=== PATIENT | female | born 1950 | race African-American/Black ===

== ENCOUNTER 2017-12-18 17:37 | Emergency (ER) | payer MEDICARE, OTHER ==
[~2017-12-18] VITALS: Ht 177.8 cm; Wt 95.0 kg
[~2017-12-18 17:37] MED LIST: AMLO10TA4 PO; AMLO5TAB4 PO; DILT60TA27 PO; HYDR-3307 PO; INSU100V8 SQ; LEVO75TA PO; LISI-466 PO; METF500T17 PO
[2017-12-18] MEDS ORDERED: SODIUM CHLORIDE FLUSH 10ML SYR IVF ONE (18:00)
[2017-12-18] MEDS ORDERED: ASPIRIN 81 MG TABLET CHEW PO ONE (18:00)
[2017-12-18] MEDS ORDERED: MAALOX/HYOSCYAMINE/LIDOCAINE 45 ML BTL PO ONE ×2 (18:00→21:30)
[2017-12-18 19:06] LABS: ALANINE AMINOTRANSFERASE 28 U/L (12-78); ALBUMIN 3.7 g/dL (3.4-5.0); ANION GAP 12 mmol/L (5-15); CALCIUM 8.8 mg/dL (8.5-10.1); CHLORIDE 109 mmol/L (98-107); CREATININE 1.22 mg/dL (0.55-1.02)
[2017-12-18 19:10] LABS: ALKALINE PHOSPHATASE 85 U/L (45-117); BASOPHILS # (AUTO) 0.03 x10^3/uL (0-0.1); BASOPHILS % (AUTO) 0 % (0-1); BILIRUBIN,TOTAL 0.5 mg/dL (0.2-1.0); EOSINOPHILS # (AUTO) 0.09 x10^3/uL (0-0.4); EOSINOPHILS % (AUTO) 2 % (1-7); LYMPHOCYTES # (AUTO) 1.68 x10^3/uL (1-3.4); LYMPHOCYTES % (AUTO) 29 % (22-44); MD NO; MEAN CORPUSCULAR HEMOGLOBIN 30.4 pg (27.0-34.8); MEAN CORPUSCULAR HGB CONC 33.3 g/dL (32.4-35.8); MEAN CORPUSCULAR VOLUME 91.2 fL (80-100); MEAN PLATELET VOLUME 8.2 fL (7.4-10.4); MONOCYTES # (AUTO) 0.43 x10^3/uL (0.2-0.8); MONOCYTES % (AUTO) 7 % (2-9); NEUTROPHILS # (AUTO) 3.65 x10^3/uL (1.8-6.8); NEUTROPHILS % (AUTO) 62 % (42-75); PLATELET COUNT 227 x10^3/uL (130-400); RED BLOOD COUNT 4.72 x10^6/uL (3.82-5.3); RED CELL DISTRIBUTION WIDTH 14.9 % (9.6-15.2); TOTAL PROTEIN 8.2 g/dL (6.4-8.2); TROPONIN I < 0.015 ng/mL (0.000-0.045)
[2017-12-18] MEDS ORDERED: MAALOX/HYOSCYAMINE/LIDOCAINE 45 ML BTL ONE (20:39)
[2017-12-18] MEDS ORDERED: ASPIRIN 81 MG TABLET CHEW ONE (20:39)
[2017-12-18 22:49] VITALS: BP 103/50
== END 2017-12-18 23:21 | disposition home or self-care (01) ==
LOC: ED 23:14
DX: K29.00 Acute gastritis without bleeding (principal); I31.3 Pericardial effusion (noninflammatory); R53.83 Other fatigue; R42 Dizziness and giddiness; I10 Essential (primary) hypertension; E11.9 Type 2 diabetes mellitus without complications; G89.29 Other chronic pain; E03.9 Hypothyroidism, unspecified; Z88.0 Allergy status to penicillin
CPT/HCPCS: 36415; 71045; 74176; 80053; 83690; 83880; 84484; 85025; 93005; 99285

== ENCOUNTER 2018-03-06 19:04 | Emergency (ER) | payer MEDICARE, OTHER ==
[~2018-03-06] VITALS: Ht 177.8 cm; Wt 102.3 kg
[2018-03-06] MEDS ORDERED: LORazepam 2 MG/ML, 1ML ONE (19:19)
[2018-03-06] MEDS ORDERED: LORazepam 2 MG/ML, 1ML IVPush ONE (19:30)
[2018-03-06] MEDS ORDERED: SODIUM CHLORIDE FLUSH 10ML SYR IVF ONE (19:30)
[2018-03-06 19:40] LABS: BASOPHILS # (AUTO) 0.01 x10^3/uL (0-0.1); BASOPHILS % (AUTO) 0 % (0-1); EOSINOPHILS # (AUTO) 0.06 x10^3/uL (0-0.4); EOSINOPHILS % (AUTO) 1 % (1-7); LYMPHOCYTES # (AUTO) 1.78 x10^3/uL (1-3.4); LYMPHOCYTES % (AUTO) 37 % (22-44); MD NO; MEAN CORPUSCULAR HGB CONC 33.1 g/dL (32.4-35.8); MEAN CORPUSCULAR VOLUME 90.9 fL (80-100); MEAN PLATELET VOLUME 8.4 fL (7.4-10.4); MONOCYTES # (AUTO) 0.57 x10^3/uL (0.2-0.8); MONOCYTES % (AUTO) 12 % (2-9); NEUTROPHILS # (AUTO) 2.34 x10^3/uL (1.8-6.8); NEUTROPHILS % (AUTO) 49 % (42-75); PLATELET COUNT 199 x10^3/uL (130-400); RED BLOOD COUNT 4.57 x10^6/uL (3.82-5.3); RED CELL DISTRIBUTION WIDTH 15.3 % (9.6-15.2)
[2018-03-06 19:54] LABS: ALANINE AMINOTRANSFERASE 32 U/L (12-78); ALBUMIN 3.6 g/dL (3.4-5.0); ANION GAP 8 mmol/L (5-15); CALCIUM 8.4 mg/dL (8.5-10.1); CHLORIDE 111 mmol/L (98-107)
[2018-03-06 19:59] LABS: ALKALINE PHOSPHATASE 91 U/L (45-117); BILIRUBIN,TOTAL 0.7 mg/dL (0.2-1.0); CREATININE 1.58 mg/dL (0.55-1.02); TOTAL PROTEIN 7.9 g/dL (6.4-8.2); TROPONIN I < 0.015 ng/mL (0.000-0.045)
--- NOTE | 2018-03-06 21:21 | NUR ---
REPEAT CHEST XRAY AT THIS TIME.
[2018-03-06 21:50] VITALS: BP 131/74
== END 2018-03-06 21:52 | disposition home or self-care (01) ==
LOC: ED 19:37
DX: R00.2 Palpitations (principal); Z90.710 Acquired absence of both cervix and uterus; E11.9 Type 2 diabetes mellitus without complications; E03.9 Hypothyroidism, unspecified; I10 Essential (primary) hypertension; K21.9 Gastro-esophageal reflux disease without esophagitis; M54.9 Dorsalgia, unspecified; G89.29 Other chronic pain; M19.90 Unspecified osteoarthritis, unspecified site
CPT/HCPCS: 36415; 71045; 80053; 84484; 85025; 93005; 96374; 99284; J2060

== ENCOUNTER 2019-11-17 15:04 | Inpatient (IN) | payer MEDICARE, OTHER ==
[~2019-11-17] VITALS: Ht 177.8 cm; Wt 101.7 kg
[~2019-11-17 15:04] MED LIST changes: +AMLO10TA8 PO; +CARI350T14 PO; +DIPH25CA61 PO; +FAMO20TA7 PO; +HYDR-3246 PO; -HYDR-3307 PO; +HYDR-3653 PO; +NABU500T PO; +ONDA8TAB18 PO; +OXYC5TAB2 PO; +PRED20TA PO; +PREG100C PO
--- NOTE | 2019-11-17 15:15 | NUR ---
THIS IS A 69YO F BIB EMS W/ C/O PRODUCTIVE COUGH SINCE THURSDAY. PER EMS PT WAS 88% RA ON ARRIVAL. PT ON 2L NC W/ DESIRED EFFECT. NO OTHER INTERVENTIONS G[employer]ENT. PT REPORTS NEW N/V TODAY. PT TACHYCARDIC, FEBRILE AND TACHYPNEIC. PT RESTING ON [employer] W/ CALL LIGHT IN REACH, CONNECTED TO ALL MONITORING. LINDA.
[2019-11-17] MEDS ORDERED: ACETAMINOPHEN 500 MG TABLET ONE (15:29)
[2019-11-17] MEDS ORDERED: ACETAMINOPHEN 500 MG TABLET PO ONE (15:30)
[2019-11-17] MEDS ORDERED: SODIUM CHLORIDE 0.9% 1,000ML IVBOLUS ONE (15:30)
--- NOTE | 2019-11-17 15:54 | NUR ---
PTS DAUGHTER UPDATED W/ CURRENT POC. OK TO UPDATE HER PER PT.
--- NOTE | 2019-11-17 15:56 | NUR ---
UNABLE TO START PIV AFTER 2 ATTEMPTS. WILL CONSULT FOR US IV START.
[2019-11-17 15:59] LABS: BASOPHILS % (AUTO) 0 % (0-1); EOSINOPHILS % (AUTO) 0 % (1-7); LYMPHOCYTES % (AUTO) 8 % (22-44); MEAN CORPUSCULAR HEMOGLOBIN 29.1 pg (27.0-34.8); MEAN CORPUSCULAR HGB CONC 33.2 g/dL (32.4-35.8); MEAN PLATELET VOLUME 8.5 fL (7.4-10.4); MONOCYTES % (AUTO) 5 % (2-9); NEUTROPHILS % (AUTO) 86 % (42-75); PLATELET COUNT 141 x10^3/uL (130-400); RED BLOOD COUNT 4.05 x10^6/uL (3.82-5.3); RED CELL DISTRIBUTION WIDTH 14.6 % (9.6-15.2)
--- NOTE | 2019-11-17 16:00 | NUR ---
MAILE CAMACHO IN ROOM W/ US.
[2019-11-17 16:02] LABS: MD NO
[2019-11-17 16:07] LABS: ALBUMIN 3.1 g/dL (3.4-5.0); CALCIUM 8.3 mg/dL (8.5-10.1); CHLORIDE 102 mmol/L (98-107); CREATININE 1.35 mg/dL (0.55-1.02)
--- NOTE | 2019-11-17 16:08 | NUR ---
TASK RN: PIV PLACED VIA ULTRASOUND BY THIS RN. SITE CLEAN DRY AND INTACT, NO SIGNS OF INFILTRATION. IVF RUNNING.
--- NOTE | 2019-11-17 16:19 | NUR ---
TELEPHONE CALL TO LAB CONFIRMING BLOOD CULTURE [id number].
[2019-11-17] MEDS ORDERED: CEFTRIAXONE PMX 1GM/50ML 50 ML ONE (16:21)
[2019-11-17 16:22] LABS: ANION GAP 10 mmol/L (5-15)
[2019-11-17] MEDS ORDERED: POTASSIUM CHLORIDE 40 MEQ in SODIUM CHLORIDE 0.9% 500 ML IV ONE (16:30)
[2019-11-17] MEDS ORDERED: DOXYCYCLINE 100 MG in DEXTROSE 5% 250 ML IV ONE (16:30)
[2019-11-17] MEDS ORDERED: CEFTRIAXONE PMX 1GM/50ML 50 ML IVPB ONE (16:30)
--- NOTE | 2019-11-17 16:34 | NUR ---
MED CHARLES FROM PHARMACY.
--- NOTE | 2019-11-17 16:50 | NUR ---
STRAIGHT CATH URINE OBTAINED W/O INCIDENT.
--- NOTE | 2019-11-17 16:55 | NUR ---
VIBRAMYCIN AND NS W/ K+ STARTED. IV COMPATABILITY CONFIRMED W/ MICROMEDEX.
--- NOTE | 2019-11-17 17:01 | NUR ---
PT UPDATED ON POC FOR ADMIT.
[2019-11-17 17:05] LABS: D-DIMER (DIC) 0.64 ug/mlFEU (0.00-0.52); PROTIME 10.7 Seconds (9.6-11.5)
[2019-11-17 17:18] LABS: MICROSCOPIC INDICATED
--- NOTE | 2019-11-17 17:25 | NUR ---
ADMITTING PROVIDER AT BEDSIDE.
--- NOTE | 2019-11-17 17:36 | NUR ---
REPORT GIVEN TO RASHAD CAMACHO. PT IS READY FOR TRANSPORT AT THIS TIME W/ IVF INFUSING APPROPRIATELY.
[2019-11-17] MEDS ORDERED: OXYcodone IR 5MG TABLET PO PRN (18:00)
[2019-11-17] MEDS ORDERED: LABETALOL 5MG/ML, 20ML IVPush PRN (18:00)
[2019-11-17] MEDS ORDERED: ONDANSETRON 2MG/ML, 2ML IVPush PRN (18:00)
[2019-11-17] MEDS ORDERED: POTASSIUM CHLORIDE 20 MEQ TAB.ER.PRT PO ONE ×2 (18:00→21:00)
[2019-11-17 18:24] VITALS: BP 144/66
[2019-11-17] MEDS: ENOXAPARIN 40 MG/0.4 ML SQ SCH (19:21)
[2019-11-17] MEDS: ASCORBIC ACID 500 MG TABLET PO SCH ×2 (19:21→21:41)
[2019-11-17 20:00] VITALS: BP 150/68
[2019-11-17] MEDS ORDERED: DILTIAZEM 30 MG TABLET ONE (20:34)
[2019-11-17] MEDS ORDERED: DILTIAZEM 60 MG TABLET PO SCH (21:00)
[2019-11-17] MEDS: PREGABALIN 100 MG CAPSULE PO SCH (21:38)
[2019-11-17] MEDS: INSULIN GLARGINE 100 UNITS/ML, PEN SQ-INSULIN SCH (21:39)
[2019-11-17] MEDS: SODIUM CHLORIDE 0.9% 1,000 ML IV SCH (21:40)
[2019-11-18 00:08] VITALS: BP 128/67
[2019-11-18] MEDS: GUAIFENESIN/DM 100-10MG, 5ML UDC PO PRN ×3 (02:16→18:04)
[2019-11-18 05:30] LABS: BASOPHILS # (AUTO) 0.02 x10^3/uL (0-0.1); BASOPHILS % (AUTO) 0 % (0-1); EOSINOPHILS % (AUTO) 0 % (1-7); LYMPHOCYTES # (AUTO) 1.05 x10^3/uL (1-3.4); LYMPHOCYTES % (AUTO) 18 % (22-44); MD NO; MEAN CORPUSCULAR HEMOGLOBIN 29.2 pg (27.0-34.8); MEAN CORPUSCULAR HGB CONC 32.3 g/dL (32.4-35.8); MEAN PLATELET VOLUME 8.6 fL (7.4-10.4); MONOCYTES # (AUTO) 0.39 x10^3/uL (0.2-0.8); MONOCYTES % (AUTO) 7 % (2-9); NEUTROPHILS # (AUTO) 4.32 x10^3/uL (1.8-6.8); NEUTROPHILS % (AUTO) 75 % (42-75); PLATELET COUNT 153 x10^3/uL (130-400); RED BLOOD COUNT 3.83 x10^6/uL (3.82-5.3); RED CELL DISTRIBUTION WIDTH 15.2 % (9.6-15.2)
[2019-11-18 05:33] LABS: ANION GAP 7 mmol/L (5-15); CALCIUM 8.3 mg/dL (8.5-10.1); CHLORIDE 110 mmol/L (98-107)
[2019-11-18] MEDS: LEVOTHYROXINE 75 MCG TABLET PO SCH (05:34)
[2019-11-18 05:45] LABS: CREATININE 0.87 mg/dL (0.55-1.02)
[2019-11-18 06:58] VITALS: BP 145/73
[2019-11-18] MEDS ORDERED: DILTIAZEM 60 MG TABLET ONE (08:07)
[2019-11-18] MEDS: DILTIAZEM 120 MG TABLET PO SCH ×2 (08:16→20:37)
[2019-11-18] MEDS: DEXAMETHASONE 4 MG/ML, 1ML IVPush SCH (08:16)
[2019-11-18] MEDS: ASCORBIC ACID 500 MG TABLET PO SCH ×3 (08:16→20:37)
[2019-11-18] MEDS: ZINC SULFATE 220 MG CAPSULE PO SCH (08:17)
[2019-11-18] MEDS: AMLODIPINE 10 MG TAB PO SCH (08:17)
[2019-11-18] MEDS: PREGABALIN 100 MG CAPSULE PO SCH ×2 (08:17→20:37)
[2019-11-18] MEDS: SENNA/DOCUSATE TABLET PO SCH (08:17)
[2019-11-18] MEDS: AZITHROMYCIN 250 MG TABLET PO SCH (08:17)
[2019-11-18] MEDS: SODIUM CHLORIDE 0.9% 1,000 ML IV SCH ×2 (08:18→23:26)
[2019-11-18] MEDS: CHOLECALCIFEROL 5,000u TAB PO SCH (08:37)
[2019-11-18 12:10] VITALS: BP 105/52
[2019-11-18] MEDS: CEFTRIAXONE PMX 1GM/50ML 50 ML IV SCH (16:42)
[2019-11-18] MEDS: ACETAMINOPHEN 325 MG TABLET PO PRN (16:42)
[2019-11-18] MEDS: ENOXAPARIN 40 MG/0.4 ML SQ SCH (18:04)
[2019-11-18 18:33] VITALS: BP 132/73
[2019-11-18] MEDS: INSULIN GLARGINE 100 UNITS/ML, PEN SQ-INSULIN SCH (20:36)
[2019-11-19 01:24] VITALS: BP 157/76
[2019-11-19] MEDS: GUAIFENESIN/DM 100-10MG, 5ML UDC PO PRN ×3 (01:42→18:28)
[2019-11-19 04:24] LABS: ANION GAP 5 mmol/L (5-15); CALCIUM 9.1 mg/dL (8.5-10.1); CHLORIDE 108 mmol/L (98-107)
[2019-11-19 04:25] LABS: CREATININE 0.79 mg/dL (0.55-1.02)
[2019-11-19 04:27] LABS: BASOPHILS # (AUTO) 0.01 x10^3/uL (0-0.1); BASOPHILS % (AUTO) 0 % (0-1); EOSINOPHILS % (AUTO) 0 % (1-7); LYMPHOCYTES # (AUTO) 1.08 x10^3/uL (1-3.4); LYMPHOCYTES % (AUTO) 15 % (22-44); MD NO; MEAN CORPUSCULAR HEMOGLOBIN 29.1 pg (27.0-34.8); MEAN CORPUSCULAR HGB CONC 32.2 g/dL (32.4-35.8); MEAN PLATELET VOLUME 8.9 fL (7.4-10.4); MONOCYTES # (AUTO) 0.58 x10^3/uL (0.2-0.8); MONOCYTES % (AUTO) 8 % (2-9); NEUTROPHILS # (AUTO) 5.58 x10^3/uL (1.8-6.8); NEUTROPHILS % (AUTO) 77 % (42-75); PLATELET COUNT 177 x10^3/uL (130-400); RED BLOOD COUNT 4.09 x10^6/uL (3.82-5.3); RED CELL DISTRIBUTION WIDTH 15.6 % (9.6-15.2)
[2019-11-19] MEDS: LEVOTHYROXINE 75 MCG TABLET PO SCH (05:04)
[2019-11-19 07:04] VITALS: BP 135/79
[2019-11-19] MEDS: DILTIAZEM 120 MG TABLET PO SCH ×2 (07:56→20:29)
[2019-11-19] MEDS: AZITHROMYCIN 250 MG TABLET PO SCH (07:56)
[2019-11-19] MEDS: DEXAMETHASONE 4 MG/ML, 1ML IVPush SCH (07:56)
[2019-11-19] MEDS: ACETAMINOPHEN 325 MG TABLET PO PRN ×3 (07:57→20:30)
[2019-11-19] MEDS: AMLODIPINE 10 MG TAB PO SCH (07:57)
[2019-11-19] MEDS: SENNA/DOCUSATE TABLET PO SCH (07:57)
[2019-11-19] MEDS: ZINC SULFATE 220 MG CAPSULE PO SCH (07:57)
[2019-11-19] MEDS: ASCORBIC ACID 500 MG TABLET PO SCH ×3 (07:57→20:29)
[2019-11-19] MEDS: CHOLECALCIFEROL 5,000u TAB PO SCH (07:57)
[2019-11-19] MEDS: PREGABALIN 100 MG CAPSULE PO SCH ×2 (07:57→20:29)
[2019-11-19] MEDS: SODIUM CHLORIDE 0.9% 1,000 ML IV SCH (13:00)
[2019-11-19 14:08] VITALS: BP 109/64
[2019-11-19] MEDS: BENZONATATE 100 MG CAPSULE PO PRN ×2 (14:23→20:30)
[2019-11-19] MEDS: CEFTRIAXONE PMX 1GM/50ML 50 ML IV SCH (17:04)
[2019-11-19] MEDS: ENOXAPARIN 40 MG/0.4 ML SQ SCH (17:04)
[2019-11-19 18:43] VITALS: BP 146/75
[2019-11-19] MEDS: INSULIN GLARGINE 100 UNITS/ML, PEN SQ-INSULIN SCH (20:29)
[2019-11-20 00:40] VITALS: BP 123/62
[2019-11-20] MEDS: ACETAMINOPHEN 325 MG TABLET PO PRN (05:10)
[2019-11-20] MEDS: LEVOTHYROXINE 75 MCG TABLET PO SCH (05:10)
[2019-11-20] MEDS: BENZONATATE 100 MG CAPSULE PO PRN ×2 (05:10→16:23)
[2019-11-20 06:42] VITALS: BP 132/84
[2019-11-20] MEDS: INSULIN LISPRO 100 UNITS/ML, PEN SQ-INSULIN SCH ×4 (07:00→21:07)
[2019-11-20] MEDS ORDERED: DILTIAZEM 30 MG TABLET ONE (07:53)
[2019-11-20] MEDS: AMLODIPINE 10 MG TAB PO SCH (08:07)
[2019-11-20] MEDS: ZINC SULFATE 220 MG CAPSULE PO SCH (08:07)
[2019-11-20] MEDS: DILTIAZEM 120 MG TABLET PO SCH ×2 (08:07→21:06)
[2019-11-20] MEDS: PREGABALIN 100 MG CAPSULE PO SCH ×2 (08:08→21:06)
[2019-11-20] MEDS: ASCORBIC ACID 500 MG TABLET PO SCH ×3 (08:08→21:06)
[2019-11-20] MEDS: CHOLECALCIFEROL 5,000u TAB PO SCH (08:08)
[2019-11-20] MEDS: DEXAMETHASONE 4 MG/ML, 1ML IVPush SCH (08:09)
[2019-11-20] MEDS: SODIUM CHLORIDE 0.9% 1,000 ML IV SCH ×2 (08:09→21:24)
[2019-11-20] MEDS: SENNA/DOCUSATE TABLET PO SCH (08:13)
[2019-11-20 12:12] VITALS: BP 128/76
[2019-11-20] MEDS: CEFTRIAXONE PMX 1GM/50ML 50 ML IV SCH (16:23)
[2019-11-20] MEDS: ENOXAPARIN 40 MG/0.4 ML SQ SCH (16:24)
[2019-11-20 19:50] VITALS: BP 141/76
[2019-11-20] MEDS ORDERED: INSULIN GLARGINE 100 UNITS/ML, PEN SQ-INSULIN SCH (21:00)
[2019-11-20] MEDS: INSULIN GLARGINE 100 UNITS/ML, PEN SQ-INSULIN SCH (21:07)
[2019-11-20] MEDS: GUAIFENESIN/DM 100-10MG, 5ML UDC PO PRN (21:23)
[2019-11-21 01:56] VITALS: BP 145/78
[2019-11-21] MEDS: BENZONATATE 100 MG CAPSULE PO PRN ×2 (01:56→21:13)
[2019-11-21] MEDS: LEVOTHYROXINE 75 MCG TABLET PO SCH (05:35)
[2019-11-21 05:55] LABS: BASOPHILS % (AUTO) 0 % (0-1); EOSINOPHILS % (AUTO) 0 % (1-7); LYMPHOCYTES % (AUTO) 12 % (22-44); MEAN CORPUSCULAR HGB CONC 32.7 g/dL (32.4-35.8); MEAN PLATELET VOLUME 8.3 fL (7.4-10.4); MONOCYTES % (AUTO) 7 % (2-9); NEUTROPHILS % (AUTO) 81 % (42-75); PLATELET COUNT 251 x10^3/uL (130-400); RED BLOOD COUNT 4.15 x10^6/uL (3.82-5.3); RED CELL DISTRIBUTION WIDTH 14.8 % (9.6-15.2)
[2019-11-21 05:57] LABS: CHLORIDE 107 mmol/L (98-107)
[2019-11-21 06:06] LABS: ALANINE AMINOTRANSFERASE 55 U/L (12-78); ALBUMIN 2.7 g/dL (3.4-5.0); ALKALINE PHOSPHATASE 80 U/L (45-117); ANION GAP 6 mmol/L (5-15); BILIRUBIN,TOTAL 0.4 mg/dL (0.2-1.0); CALCIUM 8.7 mg/dL (8.5-10.1); CREATININE 0.81 mg/dL (0.55-1.02); TOTAL PROTEIN 7.2 g/dL (6.4-8.2)
[2019-11-21 06:18] LABS: MD NO
[2019-11-21 06:21] VITALS: BP 127/73
[2019-11-21] MEDS ORDERED: POTASSIUM CHLORIDE 40 MEQ in SODIUM CHLORIDE 0.9% 500 ML IV ONE (07:00)
[2019-11-21] MEDS: CHOLECALCIFEROL 5,000u TAB PO SCH (08:02)
[2019-11-21] MEDS: DILTIAZEM 120 MG TABLET PO SCH ×2 (08:02→21:13)
[2019-11-21] MEDS: ZINC SULFATE 220 MG CAPSULE PO SCH (08:02)
[2019-11-21] MEDS: AMLODIPINE 10 MG TAB PO SCH (08:02)
[2019-11-21] MEDS: ASCORBIC ACID 500 MG TABLET PO SCH ×3 (08:02→21:13)
[2019-11-21] MEDS: PREGABALIN 100 MG CAPSULE PO SCH ×2 (08:02→21:13)
[2019-11-21] MEDS: DEXAMETHASONE 4 MG/ML, 1ML IVPush SCH (08:02)
[2019-11-21] MEDS: SENNA/DOCUSATE TABLET PO SCH (08:02)
[2019-11-21] MEDS: INSULIN LISPRO 100 UNITS/ML, PEN SQ-INSULIN SCH ×4 (08:02→21:15)
[2019-11-21] MEDS ORDERED: DEXTROMETHORPHAN 30 MG/5 ML ORAL SOL PO PRN (12:00)
[2019-11-21 12:01] VITALS: BP 123/69
[2019-11-21] MEDS: SODIUM CHLORIDE 0.9% 1,000 ML IV SCH (13:54)
[2019-11-21] MEDS: ENOXAPARIN 40 MG/0.4 ML SQ SCH (17:40)
[2019-11-21 19:05] VITALS: BP 118/70
[2019-11-21] MEDS: INSULIN GLARGINE 100 UNITS/ML, PEN SQ-INSULIN SCH (21:14)
[2019-11-22 01:45] VITALS: BP 136/75
[2019-11-22] MEDS: SODIUM CHLORIDE 0.9% 1,000 ML IV SCH (01:56)
[2019-11-22] MEDS: LEVOTHYROXINE 75 MCG TABLET PO SCH (05:23)
[2019-11-22] MEDS: BENZONATATE 100 MG CAPSULE PO PRN (05:23)
[2019-11-22 06:14] LABS: BASOPHILS % (AUTO) 0 % (0-1); EOSINOPHILS % (AUTO) 0 % (1-7); LYMPHOCYTES % (AUTO) 15 % (22-44); MEAN CORPUSCULAR HEMOGLOBIN 28.7 pg (27.0-34.8); MEAN CORPUSCULAR HGB CONC 32.7 g/dL (32.4-35.8); MEAN PLATELET VOLUME 8.2 fL (7.4-10.4); MONOCYTES % (AUTO) 11 % (2-9); NEUTROPHILS % (AUTO) 75 % (42-75); PLATELET COUNT 331 x10^3/uL (130-400); RED BLOOD COUNT 4.33 x10^6/uL (3.82-5.3); RED CELL DISTRIBUTION WIDTH 14.9 % (9.6-15.2)
[2019-11-22 06:22] LABS: ANION GAP 9 mmol/L (5-15); CALCIUM 8.9 mg/dL (8.5-10.1); CHLORIDE 109 mmol/L (98-107); CREATININE 0.82 mg/dL (0.55-1.02)
[2019-11-22 06:31] LABS: MD NO
[2019-11-22 06:32] VITALS: BP 131/78
[2019-11-22] MEDS: INSULIN LISPRO 100 UNITS/ML, PEN SQ-INSULIN SCH ×3 (07:00→16:50)
[2019-11-22] MEDS: ASCORBIC ACID 500 MG TABLET PO SCH ×2 (09:04→15:57)
[2019-11-22] MEDS: SENNA/DOCUSATE TABLET PO SCH (09:04)
[2019-11-22] MEDS: PREGABALIN 100 MG CAPSULE PO SCH (09:04)
[2019-11-22] MEDS: DILTIAZEM 120 MG TABLET PO SCH (09:05)
[2019-11-22] MEDS: ZINC SULFATE 220 MG CAPSULE PO SCH (09:05)
[2019-11-22] MEDS: AMLODIPINE 10 MG TAB PO SCH (09:05)
[2019-11-22] MEDS: CHOLECALCIFEROL 5,000u TAB PO SCH (09:05)
[2019-11-22] MEDS: DEXAMETHASONE 4 MG/ML, 1ML IVPush SCH (09:05)
[2019-11-22] MEDS ORDERED: SUMATRIPTAN 100 MG TABLET PO PRN (10:30)
[2019-11-22] MEDS: ACETAMINOPHEN 325 MG TABLET PO PRN (10:56)
[2019-11-22 12:18] VITALS: BP 128/77
== END 2019-11-22 17:05 | disposition home or self-care (01) | DRG 871 ==
LOC: ED 17:05 → SUATTDRO 17:07 → EDIP 17:12 → ED 17:17 → 4EST 18:15
PROVIDERS: ADMIT Hospitalist; ATTEND Family Medicine
DX: A41.89 Other specified sepsis (principal); U07.1 COVID-19; N17.0 Acute kidney failure with tubular necrosis; J96.01 Acute respiratory failure with hypoxia; J12.89 Other viral pneumonia; N39.0 Urinary tract infection, site not specified; E87.6 Hypokalemia; I10 Essential (primary) hypertension; E03.9 Hypothyroidism, unspecified; E78.5 Hyperlipidemia, unspecified; B96.20 Unspecified Escherichia coli [E. coli] as the cause of diseases classified elsewhere; E11.65 Type 2 diabetes mellitus with hyperglycemia; E11.40 Type 2 diabetes mellitus with diabetic neuropathy, unspecified; Z88.0 Allergy status to penicillin; Z79.899 Other long term (current) drug therapy; Z88.8 Allergy status to other drugs, medicaments and biological substances
CPT/HCPCS: 36415; 71045; 80048; 80053; 81001; 82040; 82728; 82962; 83036; 83605; 83615; 83735; 84100; 84145; 84443; 85025; 85049; 85379; 85384; 85610; 85730; 86140; 87040; 87077; 87086; 87186; 87635; 93005; 96365; 96375; G0378; J0696; J1100; J1650; J3480; J7060; J1815; J7030; J7040